=== PATIENT | female | born 1940 | race Caucasian/White ===

== ENCOUNTER 2018-03-18 06:47 | Day surgery (SDC) | payer MEDICARE ==
[2016-01-17 07:47] VITALS: BMI 21.2
[2018-03-18] MEDS ORDERED: Propofol 10 mg/ml Inj (20 ML) ONE ×2 (08:39→09:17)
--- NOTE | 2018-03-18 08:43 | CP.SDSHP ---
Same Day Surgery H & P - History Proposed Procedure: colonoscopy Pre-Op Diagnosis: crohns, stricture - Previous Medical/Surgical History Comments: anemia - Allergies Allergies: Allergies No Known Allergies Allergy (Verified 03/17/18 14:43) - Physical Exam Vital Signs: Vital Signs 03/18/18 07:10 Temperature 97.5 F L Pulse Rate 73 Respiratory 18 Rate Blood Pressure 127/67 O2 Sat by Pulse 99 Oximetry Mental Status: Alert & Oriented x3 Neuro: WNL Heart: WNL Lungs: WNL GI: WNL - {Optional Preform as Required} Abdomen: WNL - Impression Impression: crohns Pt. Evaluated Today:Candidate for Anesthesia & Procedure: Yes - Date & Time Date: 03/18/18 Time: 08:35 Short Stay Discharge - Short Stay Discharge Admitting Diagnosis/Reason for Visit: COLITIS Disposition: HOME/ ROUTINE
[2018-03-18 08:57] VITALS: O2SAT 100
[2018-03-18 09:54] VITALS: TEMP 97.8
[2018-03-18 13:07] VITALS: BP 119/70; PULSE 64; RESP 16
== END 2018-03-18 11:45 | disposition home or self-care (01) ==
LOC: C.ENDO 06:47
PROVIDERS: ATTEND Internal Medicine Gastroenterology
DX: K50.10 Crohn's disease of large intestine without complications (principal); K63.89 Other specified diseases of intestine; K57.30 Diverticulosis of large intestine without perforation or abscess without bleeding
CPT/HCPCS: 45380; 88305; J2704; J3010

== ENCOUNTER 2018-04-08 07:03 | Day surgery (SDC) | payer MEDICARE ==
[2016-01-17 07:47] VITALS: BMI 21.2
[2018-04-08 08:02] VITALS: TEMP 97.8
--- NOTE | 2018-04-08 10:34 | CP.SDSHP ---
Same Day Surgery H & P - History Proposed Procedure: endoscopy Pre-Op Diagnosis: anemia - Previous Medical/Surgical History Comments: crohns - Allergies Allergies: Allergies No Known Allergies Allergy (Verified 03/17/18 14:43) - Physical Exam Vital Signs: Vital Signs 04/08/18 07:56 Temperature 97.8 F Pulse Rate 80 Respiratory 20 Rate Blood Pressure 156/74 H O2 Sat by Pulse 98 Oximetry Mental Status: Alert & Oriented x3 Neuro: WNL Heart: WNL Lungs: WNL GI: WNL - {Optional Preform as Required} Abdomen: WNL - Impression Impression: anemia Pt. Evaluated Today:Candidate for Anesthesia & Procedure: Yes - Date & Time Date: 04/08/18 Time: 10:20 Short Stay Discharge - Short Stay Discharge Admitting Diagnosis/Reason for Visit: ANEMIA Disposition: HOME/ ROUTINE
[2018-04-08] MEDS ORDERED: Lactated Ringer's 500 ML IV ONE (10:35)
[2018-04-08] MEDS ORDERED: Propofol 10 mg/ml Inj (20 ML) ONE (10:35)
[2018-04-08 11:14] VITALS: O2SAT 100
[2018-04-08 12:02] VITALS: BP 117/88; PULSE 77; RESP 18
== END 2018-04-08 11:55 | disposition home or self-care (01) ==
LOC: C.ENDO 07:03
PROVIDERS: ATTEND Internal Medicine Gastroenterology
DX: D50.9 Iron deficiency anemia, unspecified (principal); K44.9 Diaphragmatic hernia without obstruction or gangrene; K29.70 Gastritis, unspecified, without bleeding; K31.9 Disease of stomach and duodenum, unspecified
CPT/HCPCS: 43239; 88305; 88313; 88342; J2001; J2704; J7120